=== PATIENT | female | born 1985 | race Caucasian/White ===

== ENCOUNTER 2020-07-10 14:09 | Outpatient (CLI) | payer OTHER, SELFPAY ==
--- NOTE | 2020-07-10 14:20 | XR_ITS ---
WS: [id number] Lumbar spine, 3 views, 07/10/2020 Clinical Data: BILATERAL SACROILITIS/CHRONIC LOWER BACK PAIN Comparison: None. Findings: No compression fractures or subluxation is seen. No disc space narrowing is seen. The transverse proc esses and SI joints are normal. Mild. Osteoarthritic spurring is present from L1 through L5. 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
--- NOTE | 2020-07-10 14:20 | XR_ITS ---
WS: [id number] Sacroiliac joints, 3 views, 07/10/2020 Clinical Data: BILATERAL SACROILITIS/CHRONIC LOW BACK PAIN Comparison: None. Findings: The SI joints are normal in width. No erosion, sclerosis or destruction is seen. There are no fractur es or dislocations. The adjacent visualized pelvis and hips are unremarkable. XR/XR sacroiliac jts m 3V 13175 Impression: Negative SI joints.
== END 2020-07-10 14:10 | disposition home or self-care (01) ==
LOC: RAD 14:14
PROVIDERS: Family Provider Family Medicine; PCP Family Medicine; Visit Provider Family Medicine
DX: M46.1 Sacroiliitis, not elsewhere classified (principal); M47.816 Spondylosis without myelopathy or radiculopathy, lumbar region
CPT/HCPCS: 72100; 72202

== ENCOUNTER → 2022-08-06 07:50 | Outpatient (BNVA) | payer OTHER, SELFPAY | PROVIDERS: Family Provider Family Medicine; PCP Family Medicine; Visit Provider Family Medicine | DX: I10 Essential (primary) hypertension (principal); R51.9 Headache, unspecified; Z00.00 Encounter for general adult medical examination without abnormal findings; Z51.81 Encounter for therapeutic drug level monitoring; Z13.220 Encounter for screening for lipoid disorders | CPT/HCPCS: 80053; 80061; 85025; 85651 ==

== ENCOUNTER → 2022-11-08 11:17 | Outpatient (BNVA) | payer OTHER, SELFPAY | PROVIDERS: Family Provider Family Medicine; PCP Family Medicine; Visit Provider Family Medicine | DX: R53.81 Other malaise (principal); R53.83 Other fatigue; Z51.81 Encounter for therapeutic drug level monitoring; I10 Essential (primary) hypertension; E55.9 Vitamin D deficiency, unspecified; E53.8 Deficiency of other specified B group vitamins | CPT/HCPCS: 80048; 82306; 82607; 84439; 84443 ==

== ENCOUNTER → 2023-09-12 13:58 | Outpatient (BNVA) | payer OTHER, SELFPAY | PROVIDERS: Family Provider Family Medicine; PCP Family Medicine; Visit Provider Obstetrics & Gynecology | DX: Z12.4 Encounter for screening for malignant neoplasm of cervix (principal); N92.4 Excessive bleeding in the premenopausal period | CPT/HCPCS: 80053; 84443; 85025; 87624 ==

== ENCOUNTER → 2023-09-27 07:50 | Outpatient (BNVA) | payer OTHER, SELFPAY | PROVIDERS: Family Provider Family Medicine; PCP Family Medicine; Visit Provider Obstetrics & Gynecology | DX: N92.0 Excessive and frequent menstruation with regular cycle (principal); D25.9 Leiomyoma of uterus, unspecified | CPT/HCPCS: 76830 ==

== ENCOUNTER 2023-10-13 06:29 | Day surgery (SDC) | payer OTHER, SELFPAY ==
--- NOTE | 2023-10-12 19:45 | W.PM.OPSFHP ---
Same Day Surgery H&P Indication for Procedure/HPI DATE OF PROCEDURE: October 13, 2023 CHIEF COMPLAINT/INDICATIONFOR SURGICAL PROCEDURE: Abnormal uterine bleeding, menorrhagia PREOP DIAGNOSIS: Abnormal uterine bleeding, menorrhagia PLANNED PROCEDURE: Operation Date: 10/13/23 08:15 Proposed Procedures p Hysteroscopy, endometrial sampling, possible endometrial polypectomy 21097, Intrauterine device placement 32281,N92.4(Not Applicable) - Gibran Barrera MD s possible endometrial polypectomy(Not Applicable) - Gibran Barrera MD s Placement of Intrauterine Device(Not Applicable) - Gibran Barrera MD 38 y.o. Periods very heavy with clots, lasting 7-8 days each month x 4 years No bleeding between periods Now scheduled for hysteroscopy, endometrial sampling, possible endometrial polypectomy; mirena intrauterine device placement Medications/Allergies* Allergies/Adverse Reactions Allergy/AdvReac Type Severity Reaction Status Date / Time No Known Allergies Allergy Verified 10/12/23 10:57 Pertinent History/Comorbid Conditions* Medical History (Updated 09/09/23 @ 10:58 by Agustín Burk NP) Depression Hypertension Family History (Updated 09/12/23 @ 13:08 by Meredith Deleon) Diabetes Father Hyperlipidemia Father Hypertension Father Stroke Father Denies family history of Colon cancer Ovarian cancer Heart disease Breast cancer Uterine cancer Thyroid disease Pertinent Exam Findings alert, oriented x 3, clear to auscultation bilaterally and regular rate & rhythm Pertinent Data Pap 09-12-23 NILM, negative HPV Pelvic sono 09-27-23 uterus mildly enlarged, 10.5 x 5.6 x 6.6 cm Uterus heterogeneous 1 cm submucosal fibroid Endometrium thickness normal Normal ovaries Recommendations Surgery/Procedure today Coding Level of Care Code Acute Code for Chg Fwd Time Spent (min) 20
[2023-10-13] VITALS (10 sets, daily range): BP systolic 115–130; BP diastolic 81–93; PULSE 62–90; RESP 12–18; TEMP 36.1–36.4; O2SAT 96–100; BMI 32.5
[2023-10-13] MEDS: sodium chloride 0.9% 1,000 ML 30 ML IV (06:55)
--- NOTE | 2023-10-13 08:50 | P.HPUD_ITS ---
Surgery/Procedure H&P Update DATE OF PROCEDURE: October 13, 2023 DATE H&P PERFORMED: 10/12/23 H&P UPDATE INFORMATION: I have reviewed H&P completed within last 30 days, I have examined patient prior to procedure and No changes to prior documentation PREOP DIAGNOSIS: Abnormal uterine bleeding, menorrhagia PRIMARY INDICATION FOR PROCEDURE: abnormal uterine bleeding, menorrhagia PLANNED PROCEDURE: Operation Date: 10/13/23 08:15 Proposed Procedures p Hysteroscopy, endometrial sampling, possible endometrial polypectomy 59182, In trauterine device placement 18862,N92.4(Not Applicable) - Gibran Barrera MD s possible endometrial polypectomy(Not Applicable) - Gibran Barrera MD s Placement of Intrauterine Device(Not Applicable) - Gibran Barrera MD
--- NOTE | 2023-10-13 09:13 | ANES.PREANE2 ---
Pre-Anesthetic Assessment Height/Weight: Height 1.57 m Weight 80.83 kg Temp Pulse Resp BP Pulse Ox O2 Del Method 97.0 F L 90 16 130/93 99 Room Air 10/13/23 06:45 10/13/23 06:45 10/13/23 06:45 10/13/23 06:45 10/13/23 06:45 10/13/23 06:46 Preop Diagnosis: Abnormal uterine bleeding, menorrhagia Operation Date: 10/13/23 08:15 Proposed Procedures p Hysteroscopy, endometrial sampling, possible endometrial polypectomy 87318, Intrauterine device placement 10765,N92.4(Not Applicable) - Gibran Barrera MD s possible endometrial polypectomy(Not Applicable) - Gibran Barrera MD s Placement of Intrauterine Device(Not Applicable) - Gibran Barrera MD Familial anesthetic complications: none Was Beta [place] taken within 24 hours: N/A Was Clonidine taken within 24 hours: N/A Last intake: Intake Last Liquid Date 10/12/23 Last Liquid Time 18:30 Last Solid Date 10/12/23 Last Solid Time 18:30 Social No alcohol and No tobacco Exam alert, oriented x 3, clear to auscultation bilaterally and regular rate & rhythm Airway Submandibular: within normal limits Cervical ROM: within normal limits Mallampati: Class II Dentition: full CV/HEM Hypertension Metabolic Morbid Obesity Neuropsych Anxiety and Depression Anesthetic Plan ASA status: 2 Anesthesia: General Medications/Allergies Home Medications Medication Instructions Recorded Confirmed Last Taken Type citalopram 10 mg tablet 10 mg PO DAILY #30 tabs 03/02/23 10/12/23 Unknown Rx lisinopril 10 2 tab PO DAILY #180 tabs 08/04/23 10/12/23 10/12/23 Rx mg-hydrochlorothiazide 12.5 mg tablet Allergies Allergy/AdvReac Type Severity Reaction Status Date / Time No Known Allergies Allergy Verified 10/12/23 10:57 Current Medications Generic Name Dose Route Start Last Admin Trade Name Freq PRN Reason Stop Dose Admin Sodium Chloride 1,000 mls @ 30 mls/hr 10/13/23 06:45 10/13/23 06:55 Sodium Chloride 0.9% IV 10/14/23 06:44 30 mls/hr .Q24H HUBER Administration PFSH Anesthesia Medical History Depression Hypertension Family History (Updated 09/12/23 @ 13:08 by Meredith Deelon) Father Diabetes Hyperlipidemia Hypertension Stroke Denies family history of Colon cancer Ovarian cancer Heart disease Breast cancer Uterine cancer Thyroid disease Data Anesthesia Cardiac Studies: No Data to Display
--- NOTE | 2023-10-13 10:13 | SUR.OPER ---
MAI IMPLANTED 52MG LOT #[id number], EXP 11/04
--- NOTE | 2023-10-13 10:25 | PM.OP ---
Operative Report Date of procedure: October 13, 2023 Pre-op diagnosis: abnormal uterine bleeding, menorrhagia Post-op diagnosis: same Post-op findings: uterus sounded to 10 cm normal endometrial cavity with small amount of endometrial tissue no polyps or fibroids Procedure done: hysteroscopy curettage of uterus placement of mirena intrauterine device Implants: mirena intrauterine device Specimens removed/disposition: endometrial curettings Surgeon: Gibran Barrera MD Anesthesia: MAC Estimated blood loss (mL): 5 Complications: none Condition: stable Disposition: PACU Brief History: 38 y.o. with very heavy menstrual periods Procedure: Informed consent signed. The patient was taken to the operating room. Anesthesia was induced. The patient was placed in dorsolithotomy position, prepped and draped for hysteroscopy. A bivalve speculum was placed in the vagina. The anterior lip of the cervix was grasped with a sharp-toothed tenaculum. The cervix was serially dilated with Hegar dilators. A hysteroscope was placed into the endometrial cavity. The endometrial cavity was seen to be normal. There were no fibroids or polyps. There was a small amount of endometrial tissue. The hysteroscope was then removed. Endometrial curettage was done with a curette. Endometrial tissue was sent to pathology. The mirena intrauterine device was then prepared, placed into the endometrial cavity and deployed. A 3-4 cm string was left at the cervical os. The sharp-toothed tenaculum was removed. There was no bleeding from the endometrial cavity or cervix. The patient was then placed supine, awakened, and taken to the PACU. Postop condition: stable EBL: 5 cc Complications: none Sponge and instrument counts were correct x two
--- NOTE | 2023-10-13 13:18 | ANE.PACU2 ---
Inpatient post-anesthesia follow up: Airway intact: Yes Vital signs: Temperature 97.2 F Pulse Rate 71 Respiratory Rate 18 Blood Pressure 123/84 Pulse Oximetry 99 Oxygen Delivery Me thod Room Air Oxygen Flow Rate Fraction of Inspir ed Oxygen Hydration adequate: Yes Nausea and vomiting: No Pain level: 2 Mental status: Baseline
== END 2023-10-13 11:12 | disposition home or self-care (01) ==
PROVIDERS: PCP Family Medicine; Visit Provider Obstetrics & Gynecology
PROC: 0UJD8ZZ Inspection of Uterus and Cervix, Via Natural or Artificial Opening Endoscopic (ICD-10-PCS; CPT 58555; principal; 2023-10-13 08:15)
PROC: (CPT 58558; 2023-10-13 08:15)
PROC: (CPT 58300; 2023-10-13 08:15)
DX: N93.9 Abnormal uterine and vaginal bleeding, unspecified (principal); I10 Essential (primary) hypertension; E66.01 Morbid (severe) obesity due to excess calories; Z68.32 Body mass index [BMI] 32.0-32.9, adult
CPT/HCPCS: 58558; 81025; 88305; J2250; J2704; J3010; J7030

== ENCOUNTER → 2024-03-07 09:10 | Outpatient (BNVA) | payer OTHER, SELFPAY | PROVIDERS: PCP Family Medicine; Visit Provider Family Medicine | DX: H53.9 Unspecified visual disturbance (principal) | CPT/HCPCS: 83036 ==

== ENCOUNTER → 2024-04-16 13:38 | Outpatient (BNVA) | payer OTHER, SELFPAY | PROVIDERS: PCP Family Medicine; Visit Provider Family Medicine | DX: J06.9 Acute upper respiratory infection, unspecified (principal); R51.9 Headache, unspecified; R53.83 Other fatigue | CPT/HCPCS: 87426 ==

== ENCOUNTER 2024-04-26 08:52 | Observation (INO) | payer OTHER, SELFPAY ==
--- NOTE | 2024-04-23 08:25 | P.ANESASSM_ITS ---
Pre-Anesthetic Assessment Height/Weight: Height 1.57 m Operation Date: 04/26/24 08:40 Proposed Procedures p Laparoscopic Assist Vaginal Hysterectomy 34679, N93.9(Not Applicable) - Gibran Barrera MD Social No alcohol and No tobacco Exam alert, oriented x 3, clear to auscultation bilaterally and regular rate & rhythm Airway Submandibular: within normal limits Cervical ROM: within normal limits Mallampati: Class I Pulmonary None reported CV/HEM Hypertension None reported Hepatic None reported GI None reported Metabolic None reported Neuropsych None reported Anesthetic Plan ASA status: 2 Anesthesia: General Medications/Allergies Home Medications Medication Instructions Recorded Confirmed Last Taken Type levonorgestrel 21 mcg/24 hr (up to intrauterine 03/06/24 04/16/24 04/23/24 History 8 years) 52 mg intrauterine device (Mirena) ondansetron HCl 4 mg tablet 4 mg PO Q8H PRN nausea and 04/16/24 04/23/24 04/16/24 Rx vomiting #20 tabs lisinopril 10 2 tab PO DAILY 04/23/24 04/23/24 04/23/24 History mg-hydrochlorothiazide 12.5 mg tablet Allergies Allergy/AdvReac Type Severity Reaction Status Date / Time No Known Allergies Allergy Verified 03/06/24 10:34 [facility] Anesthesia Medical History Depression Hypertension Surgical History (Updated 04/16/24 @ 19:35 by Donovan Stevenson MD) History of oral surgery 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
[2024-04-26] VITALS (12 sets, daily range): BP systolic 100–127; BP diastolic 64–83; PULSE 65–90; RESP 14–18; TEMP 36.1–36.6; O2SAT 92–96; BMI 33.3; BMI 34.9
--- NOTE | 2024-04-26 00:20 | W.PM.OPSFHP ---
Same Day Surgery H&P Indication for Procedure/HPI DATE OF PROCEDURE: April 26, 2024 CHIEF COMPLAINT/INDICATIONFOR SURGICAL PROCEDURE: abnormal uterine bleeding, menometrorrhagia PREOP DIAGNOSIS: menometrorrhagia PLANNED PROCEDURE: Operation Date: 04/26/24 07:00 Proposed Procedures p Laparoscopic Assist Vaginal Hysterectomy 69371, N93.9(Not Applicable) - Gibran Barrera MD 38 y.o. h/o very heavy menstrual periods periods were very heavy with clots, lasting 7-8 days each month x 4 years no bleeding between periods h/o hysteroscopy, endometrial sampling, placement of mirena IUD October 13, 2023 pathology: benign proliferative endometrium has continued to have very heavy periods despite mirena IUD states sometimes having to wear Depends when bleeding now scheduled for hysterectomy Medications/Allergies* Home Medications Medication Instructions Recorded Confirmed Type levonorgestrel 21 mcg/24 hr (up to intrauterine 03/06/24 04/16/24 History 8 years) 52 mg intrauterine device (Mirena) lisinopril 10 2 tab PO DAILY 04/23/24 04/23/24 History mg-hydrochlorothiazide 12.5 mg tablet Allergies/Adverse Reactions Allergy/AdvReac Type Severity Reaction Status Date / Time No Known Allergies Allergy Verified 03/06/24 10:34 Pertinent History/Comorbid Conditions* Medical History (Updated 01/14/24 @ 19:00 by Gibran Barrera MD) Depression Hypertension Surgical History (Updated 04/16/24 @ 19:35 by Donovan Stevenson MD) History of oral surgery 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 - [facility] Family History (Updated 09/12/23 @ 13:08 by Meredith Deleon) Diabetes Father Hyperlipidemia Father Hypertension Father Stroke Father Denies family history of Colon cancer Ovarian cancer Heart disease Breast cancer Uterine cancer Thyroid disease Social History Smoking and tobacco/nicotine status: never used tobacco/nicotine Alcohol intake: current Alcohol intake frequency: holidays/special occasions only Substance/Drug Use: never Current occupation: [employer] Pertinent Exam Findings alert, oriented x 3, clear to auscultation bilaterally and regular rate & rhythm Recommendations Surgery/Procedure today Coding Level of Care Code Acute Code for Chg Fwd Time Spent (min) 20
[2024-04-26] MEDS: sodium chloride 0.9% 1,000 ML 30 ML IV (06:24)
[2024-04-26 06:49] LABS: Basophils # 0.1 10^3/uL (0.0-0.1); Basophils % 0.6 %; Eosinophils # 0.1 10^3/uL (0.0-0.8); Eosinophils % 0.6 %; Hematocrit 41.5 % (36-47); Lymphocytes # 2.5 10^3/uL (0.8-4.8); Mean Corpuscular HGB Conc 32.3 g/dL (30-55); Mean Corpuscular Hemoglobin 28.9 pg (27-33); Mean Corpuscular Volume 89.4 fl (85-98); Mean Platelet Volume 10.8 fL (7.4-10.4); Monocytes # 0.7 10^3/uL (0.2-0.9); Monocytes % 7.4 %; Neutrophils # 6.13 10^3/uL (1.8-7.7); Nucleated Red Blood Cells % 0 %; Platelet Count 335 10^3/cmm (157-399); Red Blood Count 4.64 10^6/uL (3.85-5.65); White Blood Count 9.44 10^3/uL (3.29-11.43)
[2024-04-26 06:50] LABS: OR HCG Qualitative Urine Negative (Negative)
--- NOTE | 2024-04-26 06:53 | W.PM.OPSUD ---
Surgery/Procedure H&P Update DATE OF PROCEDURE: April 26, 2024 DATE H&P PERFORMED: 04/26/24 H&P UPDATE INFORMATION: I have reviewed H&P completed within last 30 days, I have examined patient prior to procedure and No changes to prior documentation PREOP DIAGNOSIS: abnormal uterine bleeding PLANNED PROCEDURE: Operation Date: 04/26/24 07:00 Proposed Procedures p Laparoscopic Assist Vaginal Hysterectomy 56354, N93.9(Not Applicable) - Gibran Barrera MD
--- NOTE | 2024-04-26 06:59 | P.ANESUD_ITS ---
Pre-Anesthetic Update Pre-Anesthetic Assessment: Date of Surgery/Procedure: 04/26/24 Preop Karissa gnosis: abnormal uterine bleeding Proposed Procedure: Operation Date: 04/26/24 07:00 Proposed Procedures p Laparoscopic Assist Vaginal Hysterectomy 85299, N93.9(Not Applicable) - Gibran Barrera MD Any changes to Pre-Anesthetic Assessment?: No Last Intake: Intake Last Liquid Date 04/25/24 Last Liquid Time 20:30 Last Solid Date 04/25/24 Last Solid Time 19:00 Labs Last 48hrs: Short CBC 04/26/24 Range/Units 06:28 WBC 9.44 (3.29-11.43) 10^ 3/uL Hgb 13.40 (11.27-16.99) g/ dL Hct 41.5 (36-47) % MCV 89.4 (85-98) fl Plt Count 335 (157-399) 10^3/c mm Neut % (Auto) 65.0 % Neut # (Auto) 6.13 (1.8-7.7) 10^3/u L Vitals: Temperature 97.6 F 04/26/24 06:05 Temperature Source Temporal Artery S can 04/26/24 06:05 Pulse Rate 80 04/26/24 06:05 Respiratory Rate 18 04/26/24 06:05 Blood Pressure 115/77 04/26/24 06:05 Blood Pressure Enedina n 89 04/26/24 06:05 Pulse Oximetry 96 04/26/24 06:05 Oxygen Delivery Me thod Room Air 04/26/24 06:05 Exam: Pre-Anes Outpt Exam: alert, oriented x 3, clear to auscultation bilaterally and regular rate & rhythm Cardiac Studies: No Data to Display
[2024-04-26] MEDS: ceFAZolin 2,000 mg SDV 2000 MG IVP (07:00)
[2024-04-26 07:03] LABS: Anion Gap 16.2 (5-19); Blood Urea Nitrogen 15 mg/dL (6-20); Calcium 8.8 mg/dL (8.5-10.5); Carbon Dioxide 24 mmol/L (22-29); Chloride 105 mmol/L (98-107); Creatinine Clr Calc Pharmacy 107.4515; Glomerular Filtration Rate 93.2 mL/min (90-130); Glucose 109 mg/dL (65-115); Osmolality Calculated 293 mOsm/kg (285-295); Potassium 4.2 mmol/L (3.5-5.1); Sodium 141 mmol/L (136-145)
[2024-04-26] MEDS: lidocaine-epi 2% PF 1:200,000 20 mL SDV (08:38)
--- NOTE | 2024-04-26 09:20 | ANE.PACU2 ---
Inpatient post-anesthesia follow up: Airway intact: Yes Vital signs: Temperature 97.6 F Pulse Rate 68 Respiratory Rate 18 Blood Pressure 113/77 Pulse Oximetry 94 Oxygen Delivery Me thod Room Air Oxygen Flow Rate Fraction of Inspir ed Oxygen Hydration adequate: Yes Nausea and vomiting: No Pain level: 1 Mental status: Baseline
--- NOTE | 2024-04-26 09:24 | PM.OP ---
Operative Report Date of procedure: April 26, 2024 Pre-op diagnosis: menometrorrhagia Post-op diagnosis: same Post-op findings: Moderately enlarged uterus Normal fallopian tubes Normal ovaries Procedure done: Laparoscopic assisted vaginal hysterectomy Bilateral salpingectomy Implants: none Specimens removed/disposition: mirena intrauterine device removed complete and intact, then discarded uterus and cervix bilateral fallopian tubes Surgeon: Tru Chand MD Patient Accounts Clerk: Gibran Barrera MD Anesthesia: General Estimated blood loss (mL): 100 Complications: none Condition: stable Disposition: PACU Brief History: 38 y.o. with chronic menometrorrhagia Procedure: The patient was taken to the operating room, placed supine on the table. General endotracheal anesthesia was induced. A vera catheter was placed which drained clear urine. The patient was placed in dorsolithotomy position for laparoscopic surgery. The abdomen and perineum were prepped and draped in the usual sterile fashion. The mirena IUD was removed complete and intact, discarded. A Zumi uterine elevator was placed via the cervix for manipulation of the uterus. An umbilical skin incision was made measuring approximately 1 cm. A Veress needle was inserted. After confirming intraperitoneal entry, a pneumoperitoneum was achieved. The Veress needle was removed. A trocar with sheath was placed. A laparoscope was inserted and used to visualize the pelvic organs. Normal ovaries were seen. The uterus was moderately enlarged. The fallopian tubes were normal. The liver edge was normal. One additional skin incision was made measuring 0.5 cm in the suprapubic area. 5 mm trocar with sheath was inserted via this incision under laparoscopic visualization. A Ligasure device was placed. The Ligasure device was used to divide the round ligaments on both sides followed by the uteroovarian ligaments. These were successfully coagulated and divided without any bleeding. The fallopian tubes were ligated and cut at the mesosalpinx and removed. It was then decided to proceed vaginally to complete the vaginal hysterectomy portion of the procedure. The pneumoperitoneum was allowed to escape. The Zumi was removed. A vaginal Bookwalter retractor was placed. The cervicovaginal junction was incised and the anterior and posterior cul-de-sacs were entered without any injury to the underlying organs including the bowel and the bladder. The uterine vessels on both sides were then divided and coagulated without any difficulties. The uterus was removed. Small amount of bleeding from the vaginal cuff was controlled using figure of eight stitches and Surgicell. The vaginal cuff was then closed using a running suture of O-Vicryl. The pneumoperitoneum was re-instituted and the pelvis was examined using the laparoscope to confirm good hemostasis. Following this, all instruments were removed from the abdomen after the pneumoperitoneum was allowed to escape. The laparoscopic skin incisions were then closed using 4-O skin sutures. The patient was placed supine and taken to the recovery room. Postoperative condition stable EBL: 100 cc Complications: none To PACU in good condition
[2024-04-26] MEDS: docusate sodium 100 mg Capsule PO ×2 (10:47→17:41)
[2024-04-26] MEDS: dextrose 5%-lactated ringers 1,000 ML 125 ML IV ×2 (10:47→18:47)
[2024-04-26] MEDS: ketorolac 30 mg/mL INJ IVP ×2 (11:01→17:40)
[2024-04-27 00:02] VITALS: BP 107/66; PULSE 87; RESP 18; TEMP 36.4; O2SAT 96
[2024-04-27] MEDS: dextrose 5%-lactated ringers 1,000 ML 125 ML IV ×2 (01:58→09:10)
[2024-04-27 04:23] VITALS: BP 117/78; PULSE 88; RESP 17; TEMP 36.6; O2SAT 97
[2024-04-27 05:04] LABS: Mean Corpuscular HGB Conc 30.8 g/dL (30-55); Mean Corpuscular Hemoglobin 28.9 pg (27-33); Mean Corpuscular Volume 93.8 fl (85-98); Mean Platelet Volume 10.7 fL (7.4-10.4); Platelet Count 280 10^3/cmm (157-399); Red Blood Count 4.05 10^6/uL (3.85-5.65); Red Cell Distribution Width 12.6 % (12.1-15.1); White Blood Count 19.48 10^3/uL (3.29-11.43)
[2024-04-27 07:55] VITALS: BP 108/66; PULSE 82; RESP 16; TEMP 36.7; O2SAT 96
[2024-04-27] MEDS: docusate sodium 100 mg Capsule PO (09:10)
[2024-04-27] MEDS: ibuprofen 800 mg tablet PO (09:10)
[2024-04-27 11:58] VITALS: BP 125/84; PULSE 103; RESP 17; TEMP 36.8; O2SAT 96
--- NOTE | 2024-04-27 12:05 | P.PN_ITS ---
SENIOR MARKETING DATA ANALYST Subjective 2 Subjective: Interval history: c/o mild abdominal pain, relieved with pain medications eating, voiding, ambulating well no bleeding / discharge Vitals/I&O/Wt Last Vital Signs Temp 98.3 F 04/27/24 13:03 Pulse 103 H 04/27/24 13:03 Resp 17 04/27/24 13:03 BP 125/84 04/27/24 13:03 Pulse Ox 96 04/27/24 13:03 O2 Del Method Room Air 04/27/24 11:58 04/27/24 04/27/24 04/28/24 14:59 22:59 06:59 Intake Total 1034.583 / 1034.583 Balance 1034.583 / 1034.583 Weight last 48 hrs Weight 197 lb 4.8 oz Weight 191 lb 3.2 oz Weight 182 lb Physical Exam 2 Narrative: Comfortable, in no distress Awake, alert Afebrile, VS normal Lungs: clear Cor: RRR Abd: soft, nondistended, nontender Laparoscopic incisions clean and dry Ext: normal Urinary Catheter Management: Enriquez: Cath Placed During This Visit: yes Reason for Continuing Indwelling Catheter: Perioperative Use in Selected Surgeries Urinary Catheter Date of Insertion: 04/26/24 Urinary Catheter Time of Insertion: 07:25 Data 04/27/24 04:58 04/26/24 06:20 A&P Assessment and plan (1) S/P laparoscopic assisted vaginal hysterectomy (LAVH): s/p laparoscopic-assisted vaginal hysterectomy POD #1 Doing well Plan discharge to home Call / return if fever, chills, abdominal pain, bleeding f/u in one week Attestations 2 Medical Necessity Statement*: patient s/p hysterectomy, plan discharge to home today Coding Level of Care Code Acute Code for Chg Fwd Diagnoses S/P laparoscopic assisted vaginal hysterectomy (LAVH) Z90.710 Time Spent (min) 20
--- NOTE | 2024-04-27 12:10 | PM.OBGYDC ---
Discharge Providers [employer] Date of Admission: 04/26/24 08:52 Date of Discharge: 04/27/24 Attending Provider at Admission: Gibran Barrera MD Attending Provider at Discharge: Gibran Barrera MD Consults: none Primary [employer]: Gibran Barrera MD Primary Care Provider: Donovan Stevenson MD Diagnoses at Discharge Discharge Diagnosis (1) S/P laparoscopic assisted vaginal hysterectomy (LAVH): Details from hospital stay: patient underwent laparoscopic-assisted vaginal hysterectomy and bilateral salpingectomy without any complications patient did well postoperatively was afebrile was eating, voiding, ambulating without any difficulties patient was discharged to home on the first postoperative day Status: Acute Reason for Visit Reason for Visit: N93.9 Brief History: 38 y.o. with chronic menometrorrhagia did not improve with mirena IUD patient was scheduled for hysterectomy Hospital Course Hospital Course patient underwent laparoscopic-assisted vaginal hysterectomy and bilateral salpingectomy without any complications patient did well postoperatively was afebrile was eating, voiding, ambulating without any difficulties patient was discharged to home on the first postoperative day Physical Exam Narrative: Comfortable, in no distress Awake, alert Afebrile, VS normal Lungs: clear Cor: RRR Abd: soft, nondistended, nontender Laparoscopic incisions clean and dry Ext: normal Urinary Catheter Management: Enriquez: Cath Placed During This Visit: yes Reason for Continuing Indwelling Catheter: Perioperative Use in Selected Surgeries Urinary Catheter Date of Insertion: 04/26/24 Urinary Catheter Time of Insertion: 07:25 History History History 1 Term 1 0 Miscarriages/Ectopic 0 Living Children 1 Discharge Data Studies Completed and Pending Pending at discharge Category Date Time Status Pathology: Surgical [PTH] Routine Pth 04/26/24 08:50 Received Laboratory Results WBC 19.48 10^3/uL (3.29-11.43) H 04/27/24 04:58 RBC 4.05 10^6/uL (3.85-5.65) 04/27/24 04:58 Hgb 11.70 g/dL (11.27-16.99) 04/27/24 04:58 Hct 38.0 % (36-47) 04/27/24 04:58 MCV 93.8 fl (85-98) 04/27/24 04:58 MCH 28.9 pg (27-33) 04/27/24 04:58 MCHC 30.8 g/dL (30-55) 04/27/24 04:58 RDW 12.6 % (12.1-15.1) 04/27/24 04:58 Plt Count 280 10^3/cmm (157-399) 04/27/24 04:58 MPV 10.7 fL (7.4-10.4) H 04/27/24 04:58 Neut % (Auto) 65.0 % 04/26/24 06:28 Lymph % (Auto) 26.0 % 04/26/24 06:28 [place] % (Auto) 7.4 % 04/26/24 06:28 Eos % (Auto) 0.6 % 04/26/24 06:28 Baso % (Auto) 0.6 % 04/26/24 06:28 Neut # (Auto) 6.13 10^3/uL (1.8-7.7) 04/26/24 06:28 Lymph # (Auto) 2.5 10^3/uL (0.8-4.8) 04/26/24 06:28 [place] # (Auto) 0.7 10^3/uL (0.2-0.9) 04/26/24 06:28 Eos # (Auto) 0.1 10^3/uL (0.0-0.8) 04/26/24 06:28 Baso # (Auto) 0.1 10^3/uL (0.0-0.1) 04/26/24 06:28 Nucleated RBC % (auto) 0 % 04/26/24 06:28 Nucleated RBCs # 0.0 /100WBC 04/26/24 06:28 Sodium 141 mmol/L (136-145) 04/26/24 06:20 Potassium 4.2 mmol/L (3.5-5.1) 04/26/24 06:20 Chloride 105 mmol/L (98-107) 04/26/24 06:20 Carbon Dioxide 24 mmol/L (22-29) 04/26/24 06:20 Anion Gap 16.2 (5-19) 04/26/24 06:20 BUN 15 mg/dL (6-20) 04/26/24 06:20 Creatinine 0.7 mg/dL (0.5-0.9) 04/26/24 06:20 GFR Calculation 93.2 mL/min (90-130) 04/26/24 06:20 Glucose 109 mg/dL (65-115) 04/26/24 06:20 Calculated Osmolality 293 mOsm/kg (285-295) 04/26/24 06:20 Calcium 8.8 mg/dL (8.5-10.5) 04/26/24 06:20 Urine HCG, Qual Negative (Negative) 04/26/24 06:48 Blood Type A Positive 04/26/24 06:20 Rho(D) Type Rh positive 04/26/24 06:20 Antibody Screen Negative 04/26/24 06:20 Procedures Performed laparoscopic-assisted vaginal hysterectomy and bilateral salpingectomy Vitals Last Vital Signs Temp 98.3 F 04/27/24 13:03 Pulse 103 H 04/27/24 13:03 Resp 17 04/27/24 13:03 BP 125/84 04/27/24 13:03 Pulse Ox 96 04/27/24 13:03 O2 Del Method Room Air 04/27/24 11:58 Results Labs OB ([facility]): Blood Type A Positive 04/26/24 Antibody Screen Negative 04/26/24 Hct 38.0 % (36-47) 04/27/24 Hgb 11.70 g/dL (11.27-16.99) 04/27/24 Rho(D) Type Rh positive 04/26/24 Plt Count 280 10^3/cmm (157-399) 04/27/24 TSH 0.65 uIU/mL (0.27-4.20) 09/12/23 Free T4 1.22 ng/dL (0.82-1.77) 11/08/22 Hemoglobin A1c 5.5 % (4.0-6.0) 03/07/24 Pap Smear Interpret See note 09/12/23 Discharge Plan Discharge Patient Disposition: Home Condition: Stable Prescriptions: Continued ondansetron HCl 4 mg tablet 4 mg PO Q8H PRN (Reason: nausea and vomiting) Qty: 20 0RF lisinopril-hydrochlorothiazide 10-12.5 mg tablet 2 tab PO DAILY Discontinued Mirena 21 mcg/24 hours (8 yrs) 52 mg intrauterine device 1 device intrauterine ONCE Discharge Orders: Discharge Order (Routine); Ordered 04/27/24 Ordered By: Gibran Barrera Referrals: Gibran Barrera MD [Physician] - 05/02/24 11:00 am Donovan Stevenson MD [Primary Care Provider] - 05/02/24 8:00 am Discharge Diet: Usual diet Discharge Activity: Increase activity as tolerated Patient Instructions: Ondansetron (By mouth), Lisinopril/Hydrochlorothiazide (By mouth), Acute Wound Care (DC), Laparoscopic Hysterectomy (DC), Laparoscopic Hysterectomy (GEN), Opioid Safety, Post Anesthesia Care Activity Restrictions/Additional Instructions: no intercourse x 8 weeks Discharge Attestations [employer] Time Spent in Discharge Care*: less than 30 min Coding Level of Care Code Acute Code for Chg Fwd Diagnoses S/P laparoscopic assisted vaginal hysterectomy (LAVH) Z90.710 Time Spent (min) 20
[2024-04-27 13:03] VITALS: BP 125/84; PULSE 103; RESP 17; TEMP 36.8; O2SAT 96
== END 2024-04-27 12:50 | disposition home or self-care (01) ==
LOC: MEDSURG 08:52
PROVIDERS: Anesthesiology; Admitting Provider Obstetrics & Gynecology; PCP Family Medicine; Visit Provider Obstetrics & Gynecology
PROC: 0UT9FZZ Resection of Uterus, Via Natural or Artificial Opening With Percutaneous Endoscopic Assistance (ICD-10-PCS; CPT 58552; principal; 2024-04-26 07:00)
DX: N92.1 Excessive and frequent menstruation with irregular cycle (principal); N72 Inflammatory disease of cervix uteri; I10 Essential (primary) hypertension; F32.A Depression, unspecified
CPT/HCPCS: 58552; 36415; 80048; 81025; 85025; 85027; 86850; 86900; 88307; G0378; J0690; J1170; J1885; J2250; J2704; J3010; J3490; J7030; J7121

== ENCOUNTER 2025-07-17 10:56 | Outpatient (CLI) | payer OTHER, SELFPAY ==
--- NOTE | 2025-07-17 11:00 | MM_ITS ---
WS: [id number] BILATERAL SCREENING DIGITAL TOMOSYNTHESIS MAMMOGRAM WITH CAD HISTORY: SCREENING COMPARISON: None available. Bilateral CC and MLO views with tomosynthesis and synthetic mammography submitted. Computer aided detection analyzed. Breast composition: There are scattered areas of fibroglandular density. No suspicious masses, microcalcifications or architectural distortion. MM/MM scr BI tomosynthesis [id number] IMPRESSION: BI-RADS: 1 - Negative. FOLLOW UP: 1 Year Follow-up
== END 2025-07-17 10:57 | disposition home or self-care (01) ==
LOC: MOBLMAM 10:57
PROVIDERS: PCP Family Medicine; Visit Provider Family Medicine
DX: Z12.31 Encounter for screening mammogram for malignant neoplasm of breast (principal); R92.323 Mammographic fibroglandular density, bilateral breasts
CPT/HCPCS: 77063; 77067

== ENCOUNTER → 2025-08-08 07:15 | Outpatient (BNVA) | payer OTHER, SELFPAY | PROVIDERS: PCP Family Medicine; Visit Provider Family Medicine | DX: Z13.29 Encounter for screening for other suspected endocrine disorder (principal) | CPT/HCPCS: 84439; 84443; 84481 ==